=== PATIENT | female | born 1955 | race Caucasian/White ===

== ENCOUNTER → 2016-10-31 | Outpatient (CLI) | payer BC ==
[2015-10-28 12:51] VITALS: BP 134/85; PULSE 86
[~2016-10-31] MED LIST: AZEL15GE TOP; CALCIUM PO; MULT-884 PO; PANT40TA PO; [UNRECOGNIZED DRUG - OTHER] PO
[2016-10-31 13:05] VITALS: BP 119/76; PULSE 88; TEMP 36.7; O2SAT 98
--- NOTE | 2016-10-31 16:25 | Radiation Oncology Follow-Up ---
Radiation Oncology Follow-Up Date of Visit Oct 31, 2016. Reason For Visit Annual follow-up Radiation Completion Date 03/17/15 APB Diagnosis (1) Ductal carcinoma in situ (DCIS) of right breast Status: Resolved Onset Date: 12/03/2014 Stage: 0 Permanent Comment: Abnormal right breast mammogram 11/19/2014 Status post right diagnostic mammogram 11/25/2014 Status post stereotactic core biopsy revealing DCIS grade 3 2 foci which were 1 mm in size 12/03/2014 Estrogen receptor positive and progesterone receptor negative Status post right partial mastectomy 01/01/2015 Stage pTis Status post completion of radiation therapy 03/17/2015 utilizing accelerated partial breast treatment received 3850 cGy Last Edited By: Ashlee Miguel on Mar 22, 2015 15:19 History of Present Illness Ms. Johnston is a 61 with a possible family history of breast cancer. She has been followed with serial mammograms on 11/19/2014 patient underwent bilateral digital screening mammogram. The tissue of both breasts is heterogeneously dense. There was a possible increasing microcalcifications noted extending over a 5 mm linear distribution within the posterior right breast located along the posterior nipple line. Additional views were recommended. On 2014 patient underwent a unilateral right digital diagnostic mammogram. This again demonstrated a small 5 mm cluster of calcifications in the right central breast. These were felt to be suspicious and given a BI- RADS Category 4 with biopsy recommended. On 12/03/2014 a stereotactic guided biopsy of the right breast was performed. This revealed ductal carcinoma in situ solid with comedo necrosis and nuclear grade 3 of 3. The DCIS measured up to 0.1 cm in greatest dimension. Estrogen receptors were positive (80%, strong). Progesterone receptors were negative (0%). Case: [id number]. Patient was seen by Dr. Jason Wilder for evaluation and discussion of the surgical treatment options. A breast conserving therapy was recommended. A review of the initial biopsy at [facility] confirmed ductal carcinoma in situ, high-grade, focal. The microcalcifications were associated with benign ducts. Accession #: [id number]. The patient underwent bilateral breast MRIs on 12/23/2014. Susceptibility artifact was seen in the middle one third of the 5 to 6 o'clock position of the right breast in noting the biopsy marker as the location of the biopsy-proven DCIS. Linear non-mass enhancement extends posterior and superior from the biopsy marker involving an area that is less than 4 cm but is suspicious for additional mammographically DCIS. No other suspicious masses or architectural distortions are seen within the right breast no evidence of MRI changes are noted in the left breast and no axillary adenopathy is appreciated in either breast. Patient opted to proceed with breast conserving therapy. Therefore on 2014 the patient underwent a partial mastectomy. This revealed residual small focus of ductal carcinoma in situ high-grade. There was no evidence of invasive carcinoma. DCIS was present at the inked inferior margin. Additional superior, deep lateral and inferior margins were taken and were all negative. Therefore the final margin was negative. A definitive distance to the margin through the separate new inferior margin was 0.2 centimeters thick so this would be the maximal distance to that margin. An Oncotype DX request was made however the tissue was insufficient and it was not possible to perform this test. The patient went to [facility] and was seen by Dr. Mclaughlin. He discussed the adjuvant treatment options. His recommendations were to strongly consider adjuvant antiestrogen therapy but with a minimal to no recommendation for adjuvant radiation. Patient is being seen today for discussion of the radiation treatment options and recommendations. Radiation therapy was recommended. She returned to our office for CT simulation. She was found to be a candidate for accelerated partial breast treatment. Treatment was completed 03/17/2015. Interim History She's been doing well over this past year. She has noted no changes to her breast. She's had no discomfort. She denies any masses. There is no change of the axilla. She has no swelling of her arm. She is up-to-date on mammography. She is not on antiestrogen therapy. This had been discussed with her and she chose not to take tamoxifen. She had a mammogram 06/28/2016. A short interval follow-up bilateral mammogram including olga synthesis images and repeat spot magnification views of the right breast are recommended in 6 months. A few microcalcifications near the surgical bed in the medial right breast are probably benign, most likely represents dystrophic calcifications, but longer stability as needed. BI-RADS Category 3. She is scheduled for recheck mammography December 2016. Allergies Coded Allergies: Adhesives (Unverified Allergy, Unknown, rash, 01/27/15) Home Medications Scheduled Multiple Vitamin (Multi Vitamin Daily), 1 TAB PO DAILY [calcium [id number]], 1 TAB PO DAILY Scheduled PRN Azelaic Acid (Finacea), 1 APPLN TOP DIRECTED PRN for UNDECIDED Review of Systems Gastrointestinal: Symptoms: WNL Oral: Symptoms: No Problems Respiratory: Symptoms: Dry Cough Respiratory Comments: Dry cough from reflux Other Respiratory: Chronic dry cough that she relates to reflux Urinary: Symptoms: WNL Skin: Symptoms: No Problems Other Skin Symptoms: Increased brown spots noted on right side near tx site Breast: Right Upper Arm Measurement: 33.0 Right Mid Arm Measurement: 27.5 Right Wrist Measurement: 17.0 Left Upper Arm Measurement: 33.5 Left Mid Arm Measurement: 27.3 Left Wrist Measurement: 16.8 Arm Dominence: Right Physical Exam Vital Signs Date Time Temp Pulse Resp B/P Pulse Ox O2 Delivery O2 Flow Rate FiO2 10/31/16 13:05 36.7 88 12 119/76 98 Pain: Pain Location: None Patient Pain Scale: 0 - 10 Initial Pain Intensity: 0.0 Fatigue: None General Appearance: no apparent distress Eyes: normal inspection, EOMI ENT: normal ENT inspection, hearing grossly normal Neck: no adenopathy, thyroid normal Respiratory/Chest: lungs clear, no respiratory distress, no accessory muscle use Breast: Breast examination reveals a well-healed incision of the right breast. There are no masses or tenderness and no axillary adenopathy. There are no skin retractions or nipple changes. There are no telangiectasis. Using the Bardwell score cosmesis she has a excellent outcome. The left breast showed no masses or tenderness and no axillary adenopathy. Cardiovascular: regular rate, rhythm, no gallop, no murmur Extremities: no pedal edema Neurologic/Psychiatric: no motor/sensory deficits, alert, normal mood/affect Skin: warm/dry Lymphatic: no adenopathy Additional Studies UNILATERAL RIGHT DIGITAL DIAGNOSTIC MAMMOGRAM 3D/2D WITH CAD: 06/28/2016 CLINICAL HISTORY: 61-year-old female with a personal history of right breast cancer status post lobectomy and radiation presents for follow-up of probably benign microcalcifications near the lumpectomy bed. Comparison is made to exams dated: 12/28/2015 mammogram, 06/28/2015 mammogram, 12/23 breast MRI, 12/03/2014 stereotactic biopsy, and 12/03/2014 mammogram - [facility]. FINDINGS: Right CC and MLO 2-D digital and tomosynthesis images, spot magnification right CC and ML views were obtained. The tissue of the right breast is heterogeneously dense, which may obscure small masses. Current study was also evaluated with a Computer Aided Detection (CAD) system. There is expected architectural distortion with associated surgical clips in the lower inner middle and anterior right breast, at the site of prior lumpectomy. There is mild right breast skin thickening most prominent along the inferior and medial aspect of the breast. There are a few round and reticular microcalcifications in the medial right breast, medial to the surgical clips that are most likely dystrophic. However, longer stability is needed and another short interval follow-up right mammogram including repeat spot magnification views is recommended in 6 more months. Annual bilateral mammography will be due at that time and tomosynthesis images are recommended given the heterogeneously dense breasts and personal history of right breast cancer. IMPRESSION: ACR-BI-RADS CATEGORY 3: PROBABLY BENIGN A short interval follow-up bilateral mammogram including tomosynthesis images and repeat spot magnification views of the right breast are recommended in 6 months. The few microcalcifications near the surgical site in the medial right breast are probably benign, most likely representing dystrophic calcifications. , but longer stability is needed. These results and recommendations were discussed with the patient at the time of the exam. Approximately 10% of breast cancers are not detected with mammography. A negative mammographic report should not delay biopsy if a clinically suggestive mass is present. Elizabeth Nazario M.D. ay/:06/28/2016 10:05:03 Sales And Marketing Representative: Karen Bob, [facility] letter sent: Follow Up Recommended 3 BI-RADS Code: ACR-BI-RADS Category 3: Probably Benign Dictated by: Elizabeth Nazario MD Signed by: Elizabeth Nazario MD Assessment & Plan Plan: She is scheduled for the recheck mammography with the above recommendations for December 2016. Continue regular follow-up with her PCP and Dr. Wilder. She was treated with accelerated partial breast treatment. She wanted to review her prior treatment [place]. These were reviewed with her today. She had a better understanding of the direction of her treatment. We asked her to return to our office in 1 year. She may call if she has any questions or concerns in the interim. Total Time In Follow-Up I spent 20 minutes speaking with the patient performing examination. I spent 15 minutes reviewing information in completing this note. Copy To Jason Wilder M.D.; Nusrat Pearl, DO
== END | disposition home or self-care (01) ==
LOC: C.ONC 12:55
PROVIDERS: ATTEND Radiology Radiation Oncology
DX: Z08 Encounter for follow-up examination after completed treatment for malignant neoplasm (principal); Z92.3 Personal history of irradiation; Z85.3 Personal history of malignant neoplasm of breast

== ENCOUNTER → 2016-11-16 | Outpatient (CLI) | payer BC ==
[~2016-11-16] MED LIST changes: -PANT40TA PO
== END | disposition home or self-care (01) ==
LOC: C.PAPS 11:15
PROVIDERS: ATTEND Family Medicine
DX: Z01.419 Encounter for gynecological examination (general) (routine) without abnormal findings (principal)

== ENCOUNTER → 2016-12-27 | Outpatient (CLI) | payer BC ==
--- NOTE | 2016-12-27 14:43 | MAMMOGRAPHY REPORT ---
BILATERAL DIGITAL DIAGNOSTIC MAMMOGRAM TOMOSYNTHESIS WITH CAD: 12/27/2016 CLINICAL HISTORY: 61-year-old woman with a personal history of right breast cancer status post lumpe ctomy and radiation therapy presents for bilateral mammography 2 years posttreatment. TECHNIQUE: Bilateral CC and MLO 2-D digital and tomosynthesis images, spot magnification right CC an d ML views were obtained. Current study was also evaluated with a Computer Aided Detection (CAD) sy stem. COMPARISON: Comparison is made to exams dated: 06/28/2016 mammogram, 12/28/2015 mammogram, 06/28/2015 m ammogram, 12/23/2014 breast MRI, 12/03/2014 stereotactic biopsy, and 12/03/2014 mammogram - [facility]. BREAST COMPOSITION: The tissue of both breasts is heterogeneously dense, which may obscure small ma sses. FINDINGS: A linear scar marker overlies the lower inner quadrant of the right breast. There is skin irregularity and mild skin thickening in the right lower inner quadrant. There is expected archite ctural distortion with free surgical clips remaining in place. Spot magnification views demonstrate one possible punctate microcalcification near the surgical site, but no new suspicious grouping or cluster of microcalcifications is seen in the right breast or in the left breast. No focal area of architectural distortion or obvious new masses identified. IMPRESSION: ACR BI-RADS CATEGORY 2: BENIGN There are expected post treatment changes within the right breast, without mammographic evidence of malignancy bilaterally. Recommend bilateral mammography in one year, and it would be useful to cony in a diagnostic patient in case any additional mammographic views and/or ultrasound would be needed given the personal history of breast cancer and dense breasts. These results and recommendations were discussed with the patient at the time of the exam. Approximately 10% of breast cancers are not detected with mammography. A negative mammographic repor t should not delay biopsy if a clinically suggestive mass is present. Elizabeth Nazario M.D. ay/:12/27/2016 11:03:14 Transport Technician: Karen Bob, [facility] letter sent: Normal 1/2 BI-RADS Code: ACR BI-RADS Category 2: Benign
== END | disposition home or self-care (01) ==
LOC: C.MAMM 09:38
PROVIDERS: ATTEND Surgery
DX: Z08 Encounter for follow-up examination after completed treatment for malignant neoplasm (principal); Z85.3 Personal history of malignant neoplasm of breast

== ENCOUNTER → 2017-11-07 | Outpatient (CLI) | payer OTHER ==
[~2017-11-07] MED LIST changes: +ELDCR/30 TOP
[2017-11-07 14:25] VITALS: BP 149/87; PULSE 77; TEMP 36.8; O2SAT 97
--- NOTE | 2017-11-07 15:23 | Radiation Oncology Follow-Up ---
Radiation Oncology Follow-Up Date of Visit Nov 07, 2017. Reason For Visit This patient returns for her regular scheduled follow-up visit. Radiation Completion Date APBI - 03/17/15 History of Present Illness Ms. Johnston is a 61 with a possible family history of breast cancer. She has been followed with serial mammograms on 11/19/2014 patient underwent bilateral digital screening mammogram. The tissue of both breasts is heterogeneously dense. There was a possible increasing microcalcifications noted extending over a 5 mm linear distribution within the posterior right breast located along the posterior nipple line. Additional views were recommended. On 11/25/2014 patient underwent a unilateral right digital diagnostic mammogram. This again demonstrated a small 5 mm cluster of calcifications in the right central breast. These were felt to be suspicious and given a BI-RADS Category 4 with biopsy recommended. On 12/03/2014 a stereotactic guided biopsy of the right breast was performed. This revealed ductal carcinoma in situ solid with comedo necrosis and nuclear grade 3 of 3. The DCIS measured up to 0.1 cm in greatest dimension. Estrogen receptors were positive (80%, strong). Progesterone receptors were negative (0%). Case: [id number]. Patient was seen by Dr. Jason Wilder for evaluation and discussion of the surgical treatment options. A breast conserving therapy was recommended. A review of the initial biopsy at [place] confirmed ductal carcinoma in situ, high -grade, focal. The microcalcifications were associated with benign ducts. Accession #: [id number]. The patient underwent bilateral breast MRIs on 2014. Susceptibility artifact was seen in the middle one third of the 5 to 6 o' clock position of the right breast in noting the biopsy marker as the location of the biopsy-proven DCIS. Linear non-mass enhancement extends posterior and superior from the biopsy marker involving an area that is less than 4 cm but is suspicious for additional mammographically DCIS. No other suspicious masses or architectural distortions are seen within the right breast no evidence of MRI changes are noted in the left breast and no axillary adenopathy is appreciated in either breast. Patient opted to proceed with breast conserving therapy. Therefore on the patient underwent a partial mastectomy. This revealed residual small focus of ductal carcinoma in situ high-grade. There was no evidence of invasive carcinoma. DCIS was present at the inked inferior margin. Additional superior, deep lateral and inferior margins were taken and were all negative. Therefore the final margin was negative. A definitive distance to the margin through the separate new inferior margin was 0.2 centimeters thick so this would be the maximal distance to that margin. An Oncotype DX request was made however the tissue was insufficient and it was not possible to perform this test. The patient went to [place] and was seen by Dr. Mclaughlin. He discussed the adjuvant treatment options. His recommendations were to strongly consider adjuvant antiestrogen therapy but with a minimal to no recommendation for adjuvant radiation. Patient is being seen today for discussion of the radiation treatmentoptions and recommendations. Radiation therapy was recommended. She returned to our office for CT simulation. She was found to be a candidate for accelerated partial breast treatment.Treatment was completed 03/17/2015. Patient was seen in follow-up on 10/31/2016. She's been doing well over this past year. She has noted no changes to her breast. She's had no discomfort. She denies any masses. There is no change of the axilla. She has no swelling of her arm. She is up-to-date on mammography. She is not on antiestrogen therapy. This had been discussed with her and she chose not to take tamoxifen. She had a mammogram 06/28/2016. A short interval follow-up bilateral mammogram including olga synthesis images and repeat spot magnification views of the right breast are recommended in 6 months. A few microcalcifications near the surgical bed in the medial right breast are probably benign, most likely represents dystrophic calcifications, but longer stability as needed. BI -RADS Category 3. She is scheduled for recheck mammography December 2016. Interim History Since her last visit 1 year ago the patient has done extremely well. She had a follow-up mammogram on 12/29/2016 which showed no abnormalities. She is scheduled for repeat bilateral breast mammograms on 12/31/2017. With the long term of Dr. Wilder she will be seen by Dr. Finch in [place]. She will continue under the care of her primary physician Dr. Pearl. Allergies Coded Allergies: Adhesives (Unverified Allergy, Unknown, rash, 01/27/15) Home Medications Scheduled Multiple Vitamin (Multi Vitamin Daily), 1 TAB PO DAILY Pimecrolimus (Elidel), 1 APPLN TOP DAILY [calcium [id number]], 1 TAB PO DAILY Review of Systems Gastrointestinal: Symptoms: WNL Oral: Symptoms: No Problems Respiratory: Symptoms: WNL Other Respiratory: Cough from reflux at times Urinary: Symptoms: WNL Skin: Symptoms: No Problems Breast: Right Upper Arm Measurement: 32.0 Right Mid Arm Measurement: 26.1 Right Wrist Measurement: 17.1 Left Upper Arm Measurement: 32.1 Left Mid Arm Measurement: 27.3 Left Wrist Measurement: 17.0 Arm Dominence: Right Physical Exam Vital Signs Date Time Temp Pulse Resp B/P (MAP) Pulse Ox O2 Delivery O2 Flow Rate FiO2 11/07/17 14:25 36.8 77 16 149/87 97 Fatigue: None General Appearance: WD/WN, no apparent distress Eyes: normal inspection ENT: pharynx normal Neck: supple, no adenopathy Respiratory/Chest: lungs clear, normal breath sounds Breast: Examination of the left breast reveals no palpable breast masses, no skin changes and no left axillary adenopathy. Examination of the treated right breast reveals some skin induration in the lower inner quadrant of the right breast. This is the area of the radiation treatments with accelerated partial breast irradiation. There is no tenderness associated with this area. The remainder of the breast is soft without induration or nodularity. There are no abnormal skin changes appreciated. There is no right axillary adenopathy. Measurement of the right arm reveals no lymphedema. Cardiovascular: regular rate, rhythm, no murmur Skin: normal color, no rash Lymphatic: no adenopathy Pain Management Patient Reports Pain: No Pain Management Plan The patient is experiencing no pain and therefore no pain management plan is required. Laboratory Laboratory Results: were reviewed, and no pertinent findings Pathology Pathology Results: not applicable Imaging Imaging Studies: were reviewed Imaging Comments BILATERAL DIGITAL DIAGNOSTIC MAMMOGRAM TOMOSYNTHESIS WITH CAD: 12/27/2016 CLINICAL HISTORY: 61-year-old woman with a personal history of right breast cancer status post lumpectomy and radiation therapy presents for bilateral mammography 2 years posttreatment. TECHNIQUE: Bilateral CC and MLO 2-D digital and tomosynthesis images, spot magnification right CC and ML views were obtained. Current study was also evaluated with a Computer Aided Detection (CAD) system. COMPARISON: Comparison is made to exams dated: 06/28/2016 mammogram, 12/28/2015 mammogram, 06/28/2015 mammogram, 12/23/2014 breast MRI, 12/03/2014 stereotactic biopsy, and 12/03/2014 mammogram - [facility]. BREAST COMPOSITION: The tissue of both breasts is heterogeneously dense, which may obscure small masses. FINDINGS: A linear scar marker overlies the lower inner quadrant of the right breast. There is skin irregularity and mild skin thickening in the right lower inner quadrant. There is expected architectural distortion with free surgical clips remaining in place. Spot magnification views demonstrate one possible punctate microcalcification near the surgical site, but no new suspicious grouping or cluster of microcalcifications is seen in the right breast or in the left breast. No focal area of architectural distortion or obvious new masses identified. IMPRESSION: ACR BI-RADS CATEGORY 2: BENIGN There are expected post treatment changes within the right breast, without mammographic evidence of malignancy bilaterally. Recommend bilateral mammography in one year, and it would be useful to remain a diagnostic patient in case any additional mammographic views and/or ultrasound would be needed given the personal history of breast cancer and dense breasts. These results and recommendations were discussed with the patient at the time of the exam. Approximately 10% of breast cancers are not detected with mammography. A negative mammographic report should not delay biopsy if a clinically suggestive mass is present. Assessment & Plan (Attending) This patient is doing well. She has no complaint of breast tenderness or soreness. She does note the skin and breast induration within the radiation treatment field but this is causing her no discomfort. She was originally operated on by Dr. Wilder. With his long term she will be seen initially by Dr. Finch in [place]. She is scheduled for her repeat bilateral diagnostic mammograms on 12/31/2017 we would like to see her in follow-up in one year's time.. Total Time (Attending) In Follow-Up I spent 15 minutes in discussion with the patient and preparation of this document. Copy To Jason Wilder M.D.; Nusrat Pearl,
== END | disposition home or self-care (01) ==
LOC: C.ONC 14:19
PROVIDERS: ATTEND Physician Assistant Medical
DX: Z08 Encounter for follow-up examination after completed treatment for malignant neoplasm (principal); Z92.3 Personal history of irradiation; Z85.3 Personal history of malignant neoplasm of breast; Z80.3 Family history of malignant neoplasm of breast

== ENCOUNTER → 2017-11-22 | Outpatient (CLI) | payer OTHER ==
[~2017-11-22] MED LIST changes: -AZEL15GE TOP
== END | disposition home or self-care (01) ==
LOC: C.PAPS 11:29
PROVIDERS: ATTEND Family Medicine
DX: Z12.72 Encounter for screening for malignant neoplasm of vagina (principal)

== ENCOUNTER → 2018-01-08 | Outpatient (CLI) | payer OTHER ==
--- NOTE | 2018-01-09 07:50 | MAMMOGRAPHY REPORT ---
BILATERAL DIGITAL DIAGNOSTIC MAMMOGRAM TOMOSYNTHESIS WITH CAD AND TARGETED RIGHT ULTRASOUND: 8 CLINICAL HISTORY: 62-year-old woman with a personal history of right breast cancer diagnosed in 2014, status post breast conservation treatment. She presents at time of annual bilateral screening exam and also reports intermittent pain in the medial right breast at approximately 3:00. TECHNIQUE: Bilateral breast tomosynthesis in addition to standard 2D mammography was performed. Curre nt study was also evaluated with a Computer Aided Detection (CAD) system. COMPARISON: Comparison is made to exams dated: 12/27/2016 mammogram, 06/28/2016 mammogram, 12/28/2015 cy mogram, 06/28/2015 mammogram, 12/23/2014 breast MRI, and 12/03/2014 stereotactic biopsy - [facility]. BREAST COMPOSITION: The tissue of both breasts is heterogeneously dense, which may obscure small mas ses. FINDINGS: A linear scar marker overlies the lower inner posterior right breast, and a square-shaped p ain marker overlies the 3:00 middle to posterior right breast. There is expected architectural disto rtion, skin irregularity and surgical clips in the lower inner right breast, at the site of prior lum pectomy. Mild diffuse skin thickening of the right breast persists, and is most prominent in the per iareolar and inferior region. No obvious new mass, calcifications, unexpected architectural distorti on or asymmetry is seen bilaterally, with particular attention to the area of pain in the right breas t. Targeted ultrasound was performed in the area of pain pointed out by the patient, from 2:00 through 4 :00 in the right breast. In the 3:00 axis, focal skin thickening and a skin incision is still identi fied in the skin but there is no evidence of a suspicious solid or cystic mass or fluid collection in the underlying breast parenchyma. IMPRESSION: ACR BI-RADS CATEGORY 2: BENIGN, TARGETED ULTRASOUND ACR BI-RADS CATEGORY 2: BENIGN 1. Stable mammographic appearance of the left breast, without mammographic evidence of malignancy. Advise repeat mammographic evaluation in 12 months. 2. Stable mammographic appearance of the right breast, without mammographic or targeted sonographic evidence of malignancy, with particular attention to an area of intermittent pain in the 3:00 axis. Therefore, continued clinical following is recommended. Would also recommend repeat right diagnostic mammography in 12 months. 3. Overall, would recommend mammographic evaluation in 12 months for annual screening and also in ca se any additional mammographic views and/or ultrasound will be needed, given the personal history of dense breasts and right breast cancer. Approximately 10% of breast cancers are not detected with mammography. A negative mammographic report should not delay biopsy if a clinically suggestive mass is present. Elizabeth Nazario M.D. ay/:01/08/2018 11:51:47 [employer]umber And Tinner: Karen Bob, [facility] letter sent: Normal 1/2 BI-RADS Code: ACR BI-RADS Category 2: Benign Ultrasound BI-RADS: ACR BI-RADS Category 2: Benign
== END | disposition home or self-care (01) ==
LOC: C.MAMM 09:50
PROVIDERS: ATTEND Family Medicine
DX: Z85.3 Personal history of malignant neoplasm of breast (principal); N64.4 Mastodynia

== ENCOUNTER 2020-03-22 17:39 | Inpatient (IN) ==
[2020-03-22] MEDS ORDERED: SODIUM CHLORIDE 0.9% 500 ML IV SCH (18:00)
[2020-03-22] MEDS ORDERED: HEPARIN SODIUM/DEXTROSE 25,000 UNITS/500 ML BAG IV SCH ×2 (18:30→21:34)
--- NOTE | 2020-03-22 18:40 | Emergency Department Note ---
Impression & Plan Pulmonary embolism ED Provider Note NAME: ELIZABETH CRAIG AGE: 65 SEX: F : 1955 ARRIVES VIA: Walk-In INFORMANT: Patient, ED PROVIDER(S): Edson Meng DO CHIEF COMPLAINT: Shortness of breath HPI: The patient is a 65-year-old female who presented to the emergency department for an evaluation of difficulty breathing. The patient states that she has a history of a dry cough that she has had for a long time. She started having worsening cough which was nonproductive as well as difficulty breathing especially with exertion which began in the middle last week. The patient has a history of pulmonary embolism as well as a history of breast cancer. She is not currently taking oral anticoagulation. This was stopped in 2019. The patient denies having any leg swelling but does complain of some left leg pain on the lateral aspect. She denies having any abdominal pain or vaginal bleeding. She denies having any headaches or recent falls. She denies having any current chest pain. The patient was seen by her primary care physician today and sent to the [facility] for a CT the chest. This was positive for bilateral PE. She was sent to the emergency department for further evaluation. At this time the patient states she feels significantly improved at rest. Her symptoms worsen with any exertion. ROS: See above HPI for pertinent positives & negatives. A total of 10 systems reviewed and were otherwise negative. PAST MEDICAL HISTORY: See Below PAST SURGICAL HISTORY: See Below FAMILY HISTORY: See Below SOCIAL HISTORY: See Below HOME MEDICATIONS: See Below ALLERGIES: See Below VITALS: See Below PHYSICAL EXAMINATION: GENERAL: Patient is awake alert in no acute distress patient is resting comfortably and showing no signs of anxiety EYES: The conjunctivae are clear. The pupils are round and reactive. EARS, NOSE, MOUTH AND THROAT: The nose is without any evidence of any deformity. Mucous membranes are moist. Tongue is midline. NECK: The neck is nontender and supple. RESPIRATORY: Diminished breath sounds are noted at the right base. There is no tachypnea. CARDIOVASCULAR: Tachycardic rate with regular rhythm was noted. There was no definite murmur. GASTROINTESTINAL: The abdomen is soft. Abdomen is nontender. MUSCULOSKELETAL/EXTREMITIES: There is no evidence of gross deformity full range of motion is noted in the hips and shoulders. SKIN: There is no obvious evidence of any rash. There are no petechiae, pallor or cyanosis noted. NEUROLOGIC: Patient is awake alert and oriented x3. MEDICAL DECISION MAKING: The patient is a 65-year-old female who presented to the emergency department for an evaluation of shortness of breath. The patient was seen by her primary care physician and had an outpatient CT of the chest. This revealed significant bilateral pulmonary embolism. She presented to the emergency department at the request of her primary care physician. I did receive a phone call prior to the patient's arrival. She was placed on blood thinners in the emergency department. She has a history of breast cancer. I discussed the patient's laboratory results with her. She was evaluated by the [facility] in the emergency department. She was felt to be a good candidate for further inpatient management. Triage Nursing notes reviewed. Prior medical records reviewed Vital Signs: reviewed and remarkable for no significant abnormalities Differential diagnosis: Reactive airway disease, pneumonia, pneumothorax, COPD, CHF, infections, cardiac ischemia, pulmonary embolism, musculoskeletal, gastrointestinal, as well as other pathologies. ER treatment provided: See below Diagnostics interpreted by me: ECG: EKG was obtained in the emergency department. My interpretation is normal sinus rhythm at 89 bpm. There is no ectopy. There is no acute ST segment abnormalities noted. There is no previous tracing for comparison. Cardiac Monitoring: An order was placed for continuous cardiac monitoring. The monitor shows a rate of 95 with sinus rhythm. Laboratory studies: As stated above and show below. Imaging studies: See below Consultation(s): 1839: I discussed this case with Dr. Vidal. He is agreed to evaluate the patient in the emergency department for further management and disposition. I have personally spent greater than 55 minutes of critical care time in the direct management of this patient. This includes bedside care, interpretation of diagnostic studies, and testing, discussion with consultants, patient, and family members, and other required patient management activities. This 55 minutes is in excess of all separately billable procedures. 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 Beliefs That Will Affect Care: None Current Living Situation: Spouse Other Information That Helps Us Care for You: No Feels Safe at Home: Yes Safety Concerns: Feels Safe At This Time Smoking Status: Never smoker Do You Dip or Chew Tobacco: No ; Second Hand Exposure: No ; Tobacco Cessation Education Requested by Patient: No Hx Alcohol Use: Yes Alcohol type: wine Hx Substance Use: No Allergies Allergies Allergy/AdvReac Type Severity Reaction Status Date / Time adhesive Allergy Mild rash Verified 03/22/20 18:54 Home Meds Home Medications Medication Instructions Recorded Confirmed calcium carbonate 600 mg calcium 600 mg PO DAILY tab 04/23/19 03/22/20 (1,500 mg) tablet multivitamin-ferrous 1 tab PO DAILY 04/23/19 03/22/20 fumarate-folic acid 18 mg-400 mcg tablet pimecrolimus 1 % topical cream 1 appln TOPICAL DAILY PRN gm 11/06/19 03/22/20 dexlansoprazole [Dexilant] 60 mg PO DAILY 03/22/20 03/22/20 Results & Data (ED) Vital Signs Vital Signs - 24 hr 03/22/20 17:55 03/22/20 19:30 03/22/20 19:31 Temperature 36.4 C L Temperature Source Oral Pulse Rate 103 H 108 H Pulse Rate from SpO2 Sensor 92 H 92 H Pulse Rhythm Regular Pulse Strength Normal Respiratory Rate 20 Respiratory Effort / Characteristics Non-Labored Respiratory Depth Normal Respiratory Pattern Regular Blood Pressure 158/103 H 162/101 H Blood Pressure Mean 121 118 Blood Pressure Position Sitting Pulse Oximetry 92 94 92 Oxygen Delivery Method Room Air Sepsis Recent Fever Within 48 Hours No Sepsis New/Unexplained Change in Mental Status No Sepsis Action Taken by Nursing No Action Required Home Medications Current Medication List: was personally reviewed by me Laboratory Data Attestation: I reviewed the patient's lab results. Result diagrams: 03/22/20 19:25 03/22/20 19:25 Lab Results 03/22/20 03/22/20 03/22/20 Range/Units 19:25 19:25 19:25 WBC 7.53 (4.8-10.8) K/uL RBC 4.98 (4.2-5.4) M/uL Hgb 15.5 (12.0-16.0) g/dL Hct 45.6 (37-47) % MCV 91.6 (80-100) fL MCH 31.1 (25-34) pg MCHC 34.0 (32-36) g/dL RDW Std Deviation 42.1 (36.4-46.3) fL RDW Coeff of Terry 12.6 (11.5-14.5) % Plt Count 282 (130-400) K/uL MPV 9.7 (7.4-10.4) fL Immature Gran % (Auto) 0.1 % Neut % (Auto) 71.3 % Lymph % (Auto) 17.8 % [place] % (Auto) 9.4 % Eos % (Auto) 1.1 % Baso % (Auto) 0.3 % Neut # (Auto) 5.37 (1.4-6.5) K/uL Lymph # (Auto) 1.34 (1.2-3.4) K/uL [place] # (Auto) 0.71 H (0.11-0.59) K/uL Eos # (Auto) 0.08 (0-0.5) K/uL Baso # (Auto) 0.02 (0-0.2) K/uL Immature Gran # (Auto) 0.01 (0.00-0.02) K/uL PT 10.5 (9.0-12.0) Seconds INR 1.0 (0.9-1.1) APTT 26.3 (21.0-31.0) Seconds PTT Ratio 0.9 Sodium 141 (136-145) mmol/L Potassium 4.2 (3.5-5.1) mmol/L Chloride 107 (98-107) mmol/L Carbon Dioxide 27 (21-32) mmol/L Anion Gap 7.0 (3-11) BUN 20 H (7-18) mg/dl Creatinine 1.13 (0.6-1.2) mg/dl Est Cr Clr Drug Dosing 50.8 ml/min Est GFR ( Amer) 59.1 Est GFR (Non-Af Amer) 51.0 BUN/Creatinine Ratio 17.7 (10-20) Glucose 102 H (70-99) mg/dl Calcium 9.5 (8.5-10.1) mg/dl Total Bilirubin 0.4 (0.2-1) mg/dl AST 20 (15-37) U/L ALT 27 (12-78) U/L Alkaline Phosphatase 149 H (45-117) U/L Troponin I < 0.015 (0-0.045) ng/ml Total Protein 7.7 (6.4-8.2) gm/dl Albumin 3.7 (3.4-5.0) gm/dl Globulin 4.0 (2.5-4.0) gm/dl Albumin/Globulin Ratio 0.9 (0.9-2) Lipase 276 (73-393) U/L Administered Medications Heparin Sodium/Dextrose (Heparin Sodium/Dextrose) 25,000 units in 500 mls @ 23 mls/hr IV .[id number] [facility]; Protocol Stop: 04/21/20 18:29 Last Admin: 03/22/20 19:27 Dose: 1,150 units/hr, 23 mls/hr Documented by: [id number] Cosigned by: [id number] Sodium Chloride (Nss 1000ml) 1,000 mls @ 100 mls/hr IV .Q10H [facility] Stop: 03/23/20 07:33 Last Admin: 03/22/20 22:09 Dose: 100 mls/hr Documented by: [id number] Discontinued Medications Heparin Sodium (Porcine) (Heparin Sodium (Porcine)) Confirm Administered Dose 5,000 units .ROUTE .[facility] Stop: 03/22/20 19:20 Last Admin: 03/22/20 19:27 Dose: 5,000 units Documented by: [id number] Cosigned by: [id number] Heparin Sodium/Dextrose () 1 ea IV NOW STA; Protocol Stop: 03/22/20 18:26 Last Admin: 03/22/20 19:27 Dose: Not Given Documented by: [id number] Sodium Chloride (Nss) 500 mls @ 999 mls/hr IV .Q31M [facility] Stop: 03/22/20 18:30 Last Admin: 03/22/20 19:22 Dose: 999 mls/hr Documented by: [id number] Imaging Data Radiologist's Impression: CT angio chest PE protocol CT DOSE: 334.87 mGycm HISTORY: Chest pain. Dyspnea. PE TECHNIQUE: Multiaxial CT images of the chest were performed following the intravenous administration of contrast to evaluate the pulmonary arteries. Maximal intensity projection images were also obtained. A dose lowering technique was utilized adhering to the principles of ALARA. COMPARISON STUDY: 01/07/2019 FINDINGS: Interval development of rather extensive bilateral pulmonary emboli. These involve the distal aspects of the right main pulmonary artery with involvement of the right lower as well as right upper lobe pulmonary arterial distributions. There is additional pulmonary emboli involving the distal aspect of the left main pulmonary artery with involvement of the left lower as well as left lingular pulmonary arterial distributions. No evidence for a central saddle embolus. Patient has developed parenchymal infiltrative changes involving the perihilar component of the left upper lobe. It is also right renal infiltrate involvement of the right middle lobe. Lung bases are considered clear. IMPRESSION: 1. Extensive bilateral pulmonary emboli involving the bulk of the main arterial distributions of the right as well as left hemithoraces. 2. No evidence for saddle embolus 3. Inflammatory changes involving the right middle lobe with associated pleural thickening of the right anterior chest wall, as well as additional inflammatory change of left perihilar and left upper lobe regions. 4. These should be closely monitored to exclude developing parenchymal infarct versus superimposed neoplastic change. ACT 112: Negative or not required by law. The above report was generated using voice recognition software. It may contain grammatical, syntax or spelling errors. Electronically signed by: Shade Betancur M.D. 03/22/2020 5:08 PM Dictated: 03/22/201703 Transcribed: 03/22/201703 Blood Pressure Blood Pressure Findings: Elevated blood pressure Blood Pressure Disposition: further management by hospitalist Discharge Plan Visit Data *Final* Discharge Date/Time: 03/22/20 20:41 Chief Complaint: Referred by Doctor Stated Complaint: BLOOD CLOTS IN LUNGS ED Provider: Edson Meng Discharge Problem: Pulmonary embolism Patient Disposition: Admitted As Inpatient Condition: Good Discharge Instructions Interventions: ED Discharge Assessment Last Done: 03/22/20 20:41 Discharge Problem: Pulmonary embolism Qualifiers: Pulmonary embolism type: unspecified Chronicity: acute Acute cor pulmonale presence: without acute cor pulmonale Qualified Code(s): I26.99 - Other pulmonary embolism without acute cor pulmonale
[2020-03-22] MEDS ORDERED: HEPARIN SOD 5,000 UNIT/0.5 ML VIAL ONE (19:19)
--- NOTE | 2020-03-22 19:24 | History & Physical Report ---
Date of Service March 22, 2020 Assessment & Plan (1) Pulmonary embolism: Due to concern for the clot load and also possible pulmonary infarction forming as per commented on CT angiogram patient is placed on intravenous heparin overnight. If this is well-tolerated without significant vital signs or signs of right heart strain she will likely be transition to an oral agent. She did tolerate Xarelto in the past and this could be contender. 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 As mentioned on CT angiogram there is inflammatory changes involving the right middle lobe and associated pleural thickening in the right anterior chest wall and additional inflammatory change in the left perihilar left upper lobe regions. Is questionable whether this could be a parenchymal infarct versus neoplastic change perhaps even could be radiation changes from previous treatments. Follow-up with her breast cancer center and consideration of PET scan may be undertaken (3) Esophageal reflux: Patient typically on Dexilant will continue with pharmacy substitution History of Present Illness Primary Care Provider: Nusrat Pearl 65-year-old female who presented to the emergency department for an evaluation of difficulty breathing. The patient states that she has a history of a dry cough that she has had for a long time. She started having worsening cough which was nonproductive as well as difficulty breathing especially with exertion which began in the middle last week. The patient has a history of pulmonary embolism in fall of 2017 as well as a history of breast cancer, DCIS in 2014 treated with lumpectomy and XRT. She reportedly had a hypercoagulable workup in 2018 and completed a course of Xarelto. She is not currently taking oral anticoagulation. The patient denies having any leg swelling but does complain of some left leg pain on the lateral aspect. She denies having any abdominal pain, epistaxis, rectal or vaginal bleeding. She was seen by her primary care physician today and [facility] the chest. This was positive for bilateral PE. She states her sister also had a PE and her grandmother had "poor circulation" Allergies Allergy/AdvReac Type Severity Reaction Status Date / Time adhesive Allergy Mild rash Verified 03/22/20 18:54 Home Medications Home Medications Medication Instructions Recorded Confirmed Type calcium carbonate 600 mg calcium 600 mg PO DAILY tab 04/23/19 03/22/20 History (1,500 mg) tablet multivitamin-ferrous 1 tab PO DAILY 04/23/19 03/22/20 History fumarate-folic acid 18 mg-400 mcg tablet pimecrolimus 1 % topical cream 1 appln TOPICAL DAILY PRN gm 11/06/19 03/22/20 History dexlansoprazole [Dexilant] 60 mg PO DAILY 03/22/20 03/22/20 History Past Med/Surg History Family History Brother Esophageal cancer Hypertension Mother Hypertension Cancer of peritoneum Ovarian cancer Social History Preferred Language: Lao Beliefs That Will Affect Care: None Feels Safe at Home: Yes Smoking Status: Never smoker Review of Systems Review of Systems: Mild distress and fatigue no headache, blurry or double vision no speech or swallowing issues no chest pain, pressure or palpitations Mild shortness of breath, nonproductive cough but no wheezes no abdominal pain, nausea or vomiting, diarrhea or constipation no dysuria, hematuria or frequency no focal joint pain or swelling some pain to the lateral aspect of her left lower leg but not associate with phlebitis no back pain, CVA tenderness or radicular pain no bruising, bleeding or rashes no focal signs of weakness or numbness or altered sensation no complaints or anxiety or depression. Physical Exam Physical Exam: The patient appeared well nourished and normally developed. Vital signs as documented. Head exam is normocephalic atraumatic no scleral icterus Neck is without JVD, thyromegaly, or carotid bruits. Lungs are clear to auscultation, no focal loss of breath sounds Cardiac exam, Rhythm is regular.. No murmurs, rubs or gallops. Abdominal exam reveals normal bowel sounds, soft non tender, no masses Extremities are nonedematous and both pedal pulses are normal. Negative cords, negative Homans sign Neurologic exam is alert and oriented, no focal loss of strength or sensation Skin is without bruises or rashes Psychologically is without concerns for anxiety or depression Results & Data Results & Data ([facility]) Vital Signs (Past 12 Hours) Vital Signs Temp Pulse Resp BP Pulse Ox 03/22/20 17:55 97.5 F L 103 H 20 158/103 H 92 PG Care Time/CCT Total # of Minutes Spent Total Time Spent with Patient: Total time spent is greater than 50% in coordination of care (as documented) at patient's floor/unit and/or counseling patient: Coding Level of Care Code 63123 Initial Inpt Care Lvl 3 Diagnoses Pulmonary embolism I26.99 Ductal carcinoma in situ (DCIS) of right breast D05.11 Esophageal reflux K21.9
[2020-03-22 19:33] LABS: Basophils # (auto) 0.02 K/uL (0-0.2); Basophils % (auto) 0.3 %; Eosinophils # (auto) 0.08 K/uL (0-0.5); Eosinophils % (auto) 1.1 %; Hematocrit (blood only) 45.6 % (37-47); Hemoglobin 15.5 g/dL (12.0-16.0); Immature Granulocytes # (auto) 0.01 K/uL (0.00-0.02); Immature Granulocytes % (auto) 0.1 %; Lymphocytes # (auto) 1.34 K/uL (1.2-3.4); Lymphocytes % (auto) 17.8 %; Mean Corpuscular Hemoglobin 31.1 pg (25-34); Mean Corpuscular Volume 91.6 fL (80-100); Mean Platelet Volume 9.7 fL (7.4-10.4); Monocytes # (auto) 0.71 K/uL (0.11-0.59); Monocytes % (auto) 9.4 %; Neutrophils # (auto) 5.37 K/uL (1.4-6.5); Neutrophils % (auto) 71.3 %; Platelet Count 282 K/uL (130-400); RDW Coefficient of Variation 12.6 % (11.5-14.5); RDW Standard Deviation 42.1 fL (36.4-46.3); Red Blood Count 4.98 M/uL (4.2-5.4); White Blood Count 7.53 K/uL (4.8-10.8)
[2020-03-22 19:45] LABS: Partial Thromboplastin Ratio 0.9; Partial Thromboplastin Time 26.3 Seconds (21.0-31.0); Prothrombin Time 10.5 Seconds (9.0-12.0)
[2020-03-22 19:52] LABS: Alanine Aminotransferase 27 U/L (12-78); Albumin Level 3.7 gm/dl (3.4-5.0); Aspartate Aminotransferase 20 U/L (15-37); BUN Creatinine Ratio 17.7 (10-20); Blood Urea Nitrogen 20 mg/dl (7-18); Calcium 9.5 mg/dl (8.5-10.1); Carbon Dioxide 27 mmol/L (21-32); Chloride 107 mmol/L (98-107); Creatinine Clr Calc Pharmacy 50.8 ml/min; Est GFR (African American) 59.1; Glucose 102 mg/dl (70-99); Lipase 276 U/L (73-393); Potassium 4.2 mmol/L (3.5-5.1); Sodium 141 mmol/L (136-145)
[2020-03-22 19:56] LABS: Albumin Globulin Ratio 0.9 (0.9-2); Alkaline Phosphatase 149 U/L (45-117); Bilirubin,Total 0.4 mg/dl (0.2-1); Total Protein 7.7 gm/dl (6.4-8.2); Troponin I < 0.015 ng/ml (0-0.045)
[2020-03-22] MEDS ORDERED: SODIUM CHLORIDE 0.9% 1000ML 1,000 ML IV SCH (21:34)
[2020-03-22] MEDS ORDERED: ONDANSETRON INJ 2 MG/ML 2 ML VIAL IV PRN (21:34)
[2020-03-22] MEDS ORDERED: MoRPHine SULFATE 2 MG/ML CARP IV PRN (21:34)
[2020-03-22] MEDS ORDERED: ALUMINUM/MAGNESIUM SUSP 30 ML UDC PO PRN (21:34)
[2020-03-22] MEDS ORDERED: ACETAMINOPHEN 325 MG TAB PO PRN (21:34)
[2020-03-23 01:46] LABS: Hematocrit (blood only) 42.1 % (37-47); Mean Corpuscular Hemoglobin 30.6 pg (25-34); Mean Corpuscular Hgb Conc 33.3 g/dL (32-36); Mean Corpuscular Volume 92.1 fL (80-100); Mean Platelet Volume 9.8 fL (7.4-10.4); Platelet Count 256 K/uL (130-400); RDW Coefficient of Variation 12.5 % (11.5-14.5); RDW Standard Deviation 42.1 fL (36.4-46.3); Red Blood Count 4.57 M/uL (4.2-5.4)
[2020-03-23 02:05] LABS: Partial Thromboplastin Ratio 2.5
[2020-03-23 02:10] LABS: Partial Thromboplastin Time 70.8 Seconds (21.0-31.0)
[2020-03-23 02:11] LABS: BUN Creatinine Ratio 21.2 (10-20); Calcium 8.7 mg/dl (8.5-10.1); Creatinine Clr Calc Pharmacy 71.6 ml/min; Est GFR (African American) 89.7; Est GFR (Non-African American) 77.4; Potassium 3.8 mmol/L (3.5-5.1)
[2020-03-23 07:35] VITALS: TEMP 97.5
--- NOTE | 2020-03-23 08:06 | Electrocardiogram Report ---
Test Reason : Blood Pressure : / mmHG Vent. Rate : 089 BPM Atrial Rate : 089 BPM P-R Int : 144 ms QRS Dur : 074 ms QT Int : 380 ms P-R-T Axes : 065 035 045 degrees QTc Int : 462 ms Normal sinus rhythm Left atrial enlargement Low voltage QRS Borderline ECG No previous ECGs available Confirmed by Jose Montero ([id number]) on 03/23/2020 8:05:51 AM Referred By: George Pearl Confirmed By:Jose Montero
--- NOTE | 2020-03-23 08:36 | Electrocardiogram Report ---
Test Reason : Blood Pressure : / mmHG Vent. Rate : 089 BPM Atrial Rate : 089 BPM P-R Int : 146 ms QRS Dur : 072 ms QT Int : 392 ms P-R-T Axes : 066 044 052 degrees QTc Int : 476 ms Normal sinus rhythm Normal ECG When compared with ECG of 22-MAR-2020 19:18, No significant change was found Confirmed by Jose Montero ([id number]) on 03/23/2020 8:36:18 AM Referred By: George Pearl Confirmed By:Jose Montero
[2020-03-23 08:39] LABS: Partial Thromboplastin Ratio 2.2
[2020-03-23 08:42] LABS: Partial Thromboplastin Time 61.5 Seconds (21.0-31.0)
[2020-03-23] MEDS ORDERED: CEROVITE ADV FORMULA TAB PO SCH (09:00)
[2020-03-23] MEDS ORDERED: CALCIUM CARBONATE 1250MG TAB PO SCH (09:00)
[2020-03-23] MEDS ORDERED: PANTOprazole 40 MG TAB PO SCH (09:00)
[2020-03-23 11:17] VITALS: BP 142/89; O2SAT 93
[2020-03-23] MEDS ORDERED: RIVAROXABAN 15 MG TAB PO ONE (18:00)
[2020-03-23 18:08] VITALS: PULSE 91
--- NOTE | 2020-03-31 07:50 | Discharge Summary ---
Date of Service March 23, 2020 Admission HPI Per Admitting Provider 65-year-old female who presented to the emergency department for an evaluation of difficulty breathing. The patient states that she has a history of a dry cough that she has had for a long time. She started having worsening cough which was nonproductive as well as difficulty breathing especially with exertion which began in the middle last week. The patient has a history of pulmonary embolism in fall of 2017 as well as a history of breast cancer, DCIS in 2015 treated with lumpectomy and XRT. She reportedly had a hypercoagulable workup in 2018 and completed a course of Xarelto. She is not currently taking oral anticoagulation. The patient denies having any leg swelling but does complain of some left leg pain on the lateral aspect. She denies having any abdominal pain, epistaxis, rectal or vaginal bleeding. She was seen by her primary care physician today and [facility] the chest. This was positive for bilateral PE. She states her sister also had a PE and her grandmother had "poor circulation" Principal Diagnosis pulmonary embolism Discharge Exam The patient appeared well nourished and normally developed. Vital signs as documented. Head exam is normocephalic atraumatic no scleral icterus Neck is without JVD, thyromegaly, or carotid bruits. Lungs are clear to auscultation, no focal loss of breath sounds Cardiac exam, Rhythm is regular.. No murmurs, rubs or gallops. Abdominal exam reveals normal bowel sounds, soft non tender, no masses Extremities are nonedematous and both pedal pulses are normal. Negative cords, negative Homans sign Neurologic exam is alert and oriented, no focal loss of strength or sensation Skin is without bruises or rashes Psychologically is without concerns for anxiety or depression Discharge Data Allergies Allergy/AdvReac Type Severity Reaction Status Date / Time adhesive Allergy Mild rash Verified 03/22/20 18:54 Consultations 03/22/20 18:34 ED Decision to Admit Stat Hospital Course (1) Pulmonary embolism: Due to concern for the clot load and also possible pulmonary infarction forming as per commented on CT angiogram patient is placed on intravenous heparin overnight. If this is well-tolerated without significant vital signs or signs of right heart strain she will likely be transition to an oral agent. She did tolerate Xarelto in the past and this could be contender. Given the fact that this is recurrent she likely committed to lifelong anticoagulation In 2018 patient had protein C protein S Antithrombin III factor V Leiden and MT HFR all normal to her knowledge has not seen a diabetes educator. Patient will be discharged on xarelto after discussing risks and benefits. (2) Ductal carcinoma in situ (DCIS) of right breast: Diagnosed in 2014 and so far there is been no concerns or signs of recurrence she was due for mammogram in December which was delayed because of COVID. As mentioned on CT angiogram there is inflammatory changes involving the right middle lobe and associated pleural thickening in the right anterior chest wall and additional inflammatory change in the left perihilar left upper lobe regions. Is questionable whether this could be a parenchymal infarct versus neoplastic change perhaps even could be radiation changes from previous treatments. Follow-up with her breast cancer center and consideration of PET scan may be undertaken (3) Esophageal reflux: Patient typically on Dexilant will continue with pharmacy substitution Total Time Total Time Spent Total Time Spent (In Minutes): 32 Total Time Includes: Examination of the Patient, Discharge Planning and Medication Reconciliation Discharge Plan Discharge Items Patient Disposition: Home - Self-Care Reason For Visit: PULMONARY EMBOLISM Discharge Diagnosis: pulmonary embolism Condition on Discharge: Good Activity: Resume your previous activity Non-emergency contact: Primary Care Provider Call non-emergency contact if: you have any medication questions Follow-up/Referrals: Nusrat Pearl [Primary Care Provider] - 03/30/20 3:30 pm (Please, follow up with Dr. Nusrat Pearl on SundayMarch 30 at 3:30 pm. If you need to change this appointment, call the office at [phone].) Diet: Regular Addtl Attending Provider Instructions: You have been hospitalized for an acute medical problem. During your stay at [facility], we have made an effort to correct the problem that brought you to the hospital while keeping you as comfortable as possible. Medications were used to bring your condition under control and your discharge instructions will include directions for any medications you should take after leaving the hospital. Please make sure you see your Primary Care Provider as part of your follow up plan. Pending Studies at Discharge: No Stand-Alone Forms: [facility] [employer], Smoking Cessation Medications and DC Order Prescriptions: New Xarelto 15 mg (42)- 20 mg (9) tablets,dose pack See Rx Instructions .ROUTE .COMPLEX Qty: 51 RF: 0 Continued Centrum Complete 18-400 mg-mcg tablet 1 tab PO DAILY RF: 0 calcium carbonate [Calcium 600] 600 mg calcium (1,500 mg) tablet 600 mg PO DAILY RF: 0 pimecrolimus 1 % cream 1 appln topical DAILY PRN (Reason: Skin Irritation) RF: 0 Dexilant 60 mg capsule,biphase delayed releas 60 mg PO DAILY RF: 0 Discharge Orders: Discharge Order (Routine); Ordered 03/23/20 Ordered By: Juma Gatica Admission Data Admit Date/Time: 03/22/20 19:35 Attending Provider: Juma Gatica Admit Provider: Aleksandar Vidal Primary Care Provider: Nusrat Pearl Other Interventions: Discharge Summary Assessment (RN) Last Done: 03/23/20 18:06 DC Date/Time DO NOT enter until pt leaves facility: 03/23/20 18:25 Coding Level of Care Code D/C Day Management >30 mins Diagnoses Pulmonary embolism I26.99 Acute cor pulmonale presence: without acute cor pulmonale Chronicity: acute Pulmonary embolism type: unspecified Ductal carcinoma in situ (DCIS) of right breast D05.11 Esophageal reflux K21.9 Time Spent (min) 32
== END 2020-03-23 18:25 | disposition home or self-care (01) | DRG 176 ==
LOC: ED 17:39 → 2S 19:35 → SUATTDRO 19:35 → 2S 20:41